=== PATIENT | female | born 1965 | race Caucasian/White ===

== ENCOUNTER 2017-12-22 10:20 | Emergency (ER) | payer MEDICAID, OTHER ==
[~2017-12-22 10:20] MED LIST: DIPH25CA83 PO; VITC500T PO
[2017-12-23] MEDS ORDERED: GABA-530 PO (15:48)
[2017-12-23] MEDS ORDERED: ACET-1008 PO (15:48)
[2017-12-23] MEDS ORDERED: APIX5TAB3 PO (15:48)
== END 2017-12-22 11:27 | disposition left against medical advice (07) ==
LOC: ER 10:23
DX: Z00.8 Encounter for other general examination (principal); Z53.21 Procedure and treatment not carried out due to patient leaving prior to being seen by health care provider

== ENCOUNTER 2019-05-20 06:07 | Day surgery (SDC) | payer MEDICAID ==
[2019-05-13 11:26] LABS: BASOPHILS # (AUTO) 0.1 X10'3 (0-0.2); BASOPHILS % (AUTO) 0.7 % (0-1); EOSINOPHILS # (AUTO) 0.2 X10'3 (0-0.9); EOSINOPHILS % (AUTO) 3.3 % (0-6); LYMPHOCYTES # (AUTO) 3.4 X10'3 (1.1-4.8); LYMPHOCYTES % (AUTO) 45.3 % (21-51); MEAN CORPUSCULAR HEMOGLOBIN 29.5 PG (27.0-31.0); MEAN CORPUSCULAR HGB CONC 32.7 g/dL (33.0-36.5); MEAN CORPUSCULAR VOLUME 90.2 FL (78-98); MEAN PLATELET VOLUME 8.7 FL (7.4-10.4); MONOCYTES # (AUTO) 0.5 X10'3 (0-0.9); MONOCYTES % (AUTO) 7.3 % (2-12); NEUTROPHILS # (AUTO) 3.2 X10'3 (1.8-7.7); NEUTROPHILS % (AUTO) 43.4 % (42-75); PRE OP HEMATOCRIT 44.3 % (35.0-45.0); PRE OP HEMOGLOBIN 14.5 g/dL (12.0-16.0); PRE OP PLATELET COUNT 230 X10'3 (140-440); RED BLOOD COUNT 4.91 X10'6 (4.20-5.60); RED CELL DISTRIBUTION WIDTH 14.8 % (11.5-14.5)
[2019-05-13 11:39] LABS: ALBUMIN 3.5 G/DL (3.4-5.0); ALBUMIN/GLOBULIN RATIO 0.9 (1.1-1.5); ALKALINE PHOSPHATASE 106 IU/L (46-116); BLOOD UREA NITROGEN 11 MG/DL (7-18); BUN/CREATININE RATIO 12.2 (6.6-38.0); CALCIUM 8.8 MG/DL (8.5-10.1); CHLORIDE 105 MMOL/L (99-107); PRE OP ALT 25 U/L (30-65); PRE OP ANION GAP 10 (8-16); PRE OP AST 20 U/L (10-37); PRE OP BILIRUB, TOTAL 0.2 MG/DL (0.0-1.0); PRE OP GLUCOSE 96 MG/DL (70-104); PRE OP SODIUM 140 MMOL/L (135-145); TOTAL CARBON DIOXIDE 25.4 MMOL/L (24-32); TOTAL PROTEIN 7.6 G/DL (6.4-8.2); eGFR 65 ML/MIN
[2019-05-13 11:40] LABS: PRE OP POTASSIUM 4.5 MMOL/L (3.4-5.1)
[2019-05-13 11:41] LABS: PRE OP PARTIAL THROMB. TIME 24 SECONDS (22-32); PRE OP PROTIME 9.7 SECONDS (9.0-12.0)
[2019-05-13 11:42] LABS: PRE OP INR < 0.9 INR
[~2019-05-20] VITALS: Ht 172.7 cm; Wt 114.8 kg
[~2019-05-20 06:07] MED LIST changes: +APIX5TAB3 PO; -DIPH25CA83 PO; +MECL12.584 PO; +RANI-648 PO; -VITC500T PO; +albuterol 2.5 MG/3 ML nebule NEB ONE; +clindamycin-Cleocin 900mg/D5W 50 ML IV ONE; +famotidine 20mg tablet PO ONE; +ringers solution, lacted 1,000 ML IV SCH
[2019-05-20 06:10] VITALS: BP 134/88
[2019-05-20] MEDS ORDERED: LIDOcaine 1% (10mg/ml) 2ml vial ONE (06:20)
[2019-05-20] MEDS ORDERED: BUPIVAcaine/PF 2.5mg/ml (0.25%) 10ml vial ONE (06:33)
[2019-05-20] MEDS ORDERED: LIDOcaine 0.5% (5mg/ml) 50ml vial ONE (07:46)
[2019-05-20] MEDS ORDERED: fentaNYL/PF 50MCG/1 ML 2ML syringe ONE (07:51)
[2019-05-20] MEDS ORDERED: midazolam 2 mg/2 ml injection ONE (07:51)
[2019-05-20] MEDS ORDERED: ringers solution, lacted 1,000 ML IV SCH (07:56)
[2019-05-20] MEDS ORDERED: proCHLORperazine 10 MG/2 ml inj IV PRN (08:00)
[2019-05-20] MEDS ORDERED: meperidine/PF 25mg/ml syringe IV PRN ×3 (08:00)
[2019-05-20] MEDS ORDERED: ondansetron/PF 4mg/2ml inj IV PRN (08:00)
[2019-05-20] MEDS ORDERED: morphine 4 MG/ML inj SYRINge IV PRN ×2 (08:00)
[2019-05-20] MEDS ORDERED: propofol 10mg/ml 20ml vial IV ONE (08:01)
[2019-05-20 08:30] VITALS: BP 132/53
--- NOTE | 2019-05-20 08:30 | NUR ---
ADMITTED TO PACU FROM OR ACCOMPANIED BY ANESTHESIA. INTIAL PHYSICAL ASSESSMENT DONE AND RECORDED. AWAKE AND RESPONSE ON ARRIVE YO PACU, REPORT RECEIVED FROM ANESTHESIA.
[2019-05-20 08:40] VITALS: BP 132/54
[2019-05-20 08:50] VITALS: BP 130/55
--- NOTE | 2019-05-20 09:10 | NUR ---
Discharge criteria met, discharge instructions given, demonstrates verbal understanding. Discharged home in good condition.
== END 2019-05-20 09:10 | disposition home or self-care (01) ==
LOC: PAS 06:07
PROVIDERS: ATTEND Orthopaedic Surgery Hand Surgery
DX: G56.03 Carpal tunnel syndrome, bilateral upper limbs (principal); I10 Essential (primary) hypertension; F41.9 Anxiety disorder, unspecified; F32.9 Major depressive disorder, single episode, unspecified; K21.9 Gastro-esophageal reflux disease without esophagitis; G89.4 Chronic pain syndrome; F43.10 Post-traumatic stress disorder, unspecified; E66.9 Obesity, unspecified; Z68.39 Body mass index [BMI] 39.0-39.9, adult; F17.210 Nicotine dependence, cigarettes, uncomplicated; Z88.8 Allergy status to other drugs, medicaments and biological substances; Z88.1 Allergy status to other antibiotic agents; Z88.0 Allergy status to penicillin; Z86.14 Personal history of Methicillin resistant Staphylococcus aureus infection; Z90.49 Acquired absence of other specified parts of digestive tract; Z98.890 Other specified postprocedural states; Z79.01 Long term (current) use of anticoagulants; Z79.899 Other long term (current) drug therapy
CPT/HCPCS: 29848; 36415; 80053; 82948; 85025; 85610; 85730; 93005; 94640; J2001; J2250; J2704; J3010; J3490; A4215; A7000; J7120

== ENCOUNTER 2019-05-26 12:03 | Inpatient (IN) | payer MEDICAID ==
[~2019-05-26] VITALS: Ht 172.7 cm; Wt 117.0 kg
[~2019-05-26 12:03] MED LIST changes: -albuterol 2.5 MG/3 ML nebule NEB ONE; -clindamycin-Cleocin 900mg/D5W 50 ML IV ONE; -famotidine 20mg tablet PO ONE; -ringers solution, lacted 1,000 ML IV SCH
[2019-05-26] MEDS ORDERED: ondansetron/PF 4mg/2ml inj IV ONE (12:30)
[2019-05-26] MEDS ORDERED: morphine 4 MG/ML inj SYRINge IV ONE (12:30)
[2019-05-26 12:34] LABS: BASOPHILS # (AUTO) 0.1 X10'3 (0-0.2); BASOPHILS % (AUTO) 0.8 % (0-1); EOSINOPHILS # (AUTO) 0.6 X10'3 (0-0.9); EOSINOPHILS % (AUTO) 5.8 % (0-6); HEMATOCRIT 41.3 % (35.0-45.0); HEMOGLOBIN 13.5 g/dl (12.0-16.0); LYMPHOCYTES # (AUTO) 2.6 X10'3 (1.1-4.8); MEAN CORPUSCULAR HEMOGLOBIN 29.6 PG (27.0-31.0); MEAN CORPUSCULAR HGB CONC 32.8 g/dL (33.0-36.5); MEAN CORPUSCULAR VOLUME 90.1 FL (78-98); MEAN PLATELET VOLUME 8.4 FL (7.4-10.4); MONOCYTES # (AUTO) 0.7 X10'3 (0-0.9); MONOCYTES % (AUTO) 6.4 % (2-12); NEUTROPHILS # (AUTO) 6.4 X10'3 (1.8-7.7); PLATELET COUNT 187 X10'3 (140-440); RED BLOOD COUNT 4.58 X10'6 (4.20-5.60); RED CELL DISTRIBUTION WIDTH 14.3 % (11.5-14.5); WHITE BLOOD COUNT 10.4 X10'3 (4.5-11.0)
[2019-05-26 12:47] LABS: PARTIAL THROMBOPLASTIN TIME 27 SECONDS (22-32)
[2019-05-26 12:51] LABS: ALANINE AMINOTRANSFERASE 24 U/L (12-78); ALBUMIN 3.5 G/DL (3.4-5.0); ALBUMIN/GLOBULIN RATIO 0.9 (1.1-1.5); ALKALINE PHOSPHATASE 101 IU/L (46-116); ANION GAP 8 (8-16); ASPARTATE AMINO TRANSFERASE 17 U/L (10-37); BILIRUBIN,TOTAL 0.4 MG/DL (0.1-1.0); BLOOD UREA NITROGEN 11 MG/DL (7-18); BUN/CREATININE RATIO 11.7 (6.6-38.0); CALCIUM 8.7 MG/DL (8.5-10.1); CHLORIDE 106 MMOL/L (99-107); CREATININE 0.94 MG/DL (0.40-0.90); GLUCOSE 92 MG/DL (70-104); SODIUM 139 MMOL/L (135-145); TOTAL CARBON DIOXIDE 25.2 MMOL/L (24-32); TOTAL PROTEIN 7.6 G/DL (6.4-8.2); eGFR 62 ML/MIN
[2019-05-26] MEDS ORDERED: iohexol 350MG/ML 100ml bottle IV ONE (13:11)
--- NOTE | 2019-05-26 13:11 | NUR ---
Patient to CT
[2019-05-26] MEDS ORDERED: heparin 25,000 UNIT/250ml bag 250 ML IV SCH (13:48)
[2019-05-26] MEDS ORDERED: heparin 10,000 units/1 ML INJ IV PRN (13:50)
[2019-05-26] MEDS ORDERED: heparin 10,000 units/1 ML INJ IV ONE (13:50)
[2019-05-26] MEDS ORDERED: ondansetron/PF 4mg/2ml inj IV PRN (14:10)
[2019-05-26] MEDS ORDERED: HYDROcodone/acetaminophen 5mg/325mg tablet PO PRN (14:10)
[2019-05-26] MEDS ORDERED: morphine 2 MG/ML inj. syringe IV PRN ×2 (14:10)
[2019-05-26] MEDS ORDERED: mag hydrox/Alum hydrox/simeth 30ml oral suspension PO PRN (14:10)
[2019-05-26] MEDS ORDERED: acetaminophen 325mg tablet PO PRN (14:10)
[2019-05-26] MEDS ORDERED: magnesium hydroxide 30ml (MOM) UD suspension PO PRN (14:10)
[2019-05-26] MEDS ORDERED: ACET-75 PO (14:26)
[2019-05-26] MEDS ORDERED: DOCU250C88 PO (14:26)
[2019-05-26] MEDS ORDERED: MECL-111 PO (14:26)
--- NOTE | 2019-05-26 14:41 | NUR ---
Patient lying in bed. Crying and upset about having PE's. Reassured patient and called her family for her. Patient calming down but still upset. Patient declined warm blanket at this time. Heparin drip infusing.
--- NOTE | 2019-05-26 16:50 | NUR ---
Recieved report from ENGINEER SECOND ASSISTANT [place]. Pt is ready to transfer to PCU. all questions and pertinent info was relayed.
[2019-05-26 17:00] VITALS: BP 112/64
--- NOTE | 2019-05-26 17:00 | NUR ---
Pt arrived to rm 3018B via gurney with one attendent. She was able to self transfer to bed. She is A&Ox3, c/o 8 pain in her chest, breathing is even deep and normal rate.. will medicate for pain and continue to monitor
[2019-05-26] MEDS ORDERED: docusate sod 250mg capsule PO PRN (17:30)
--- NOTE | 2019-05-26 17:33 | NUR ---
pT IS GETTING AN ECHO AT BEDSIDE
[2019-05-26 18:00] VITALS: BP 100/61
--- NOTE | 2019-05-26 18:35 | NUR ---
Problems reprioritized. Patient report given, questions answered & plan of care reviewed with PENG Daugherty.
[2019-05-26] MEDS: furosemide 20 MG/2 ML vial IV SCH (19:12)
[2019-05-26] MEDS: apixaban 5mg tablet PO SCH (19:16)
--- NOTE | 2019-05-26 19:37 | NUR ---
Patient in room PCU 3018. I have received report from PENG Oliveira and had the opportunity to ask questions and assume patient care.
[2019-05-26] MEDS: famotidine 20mg tablet PO SCH (20:38)
[2019-05-26] MEDS ORDERED: non-formulary drug (Ranitidine HCl (Zantac) 1 TAB) PO SCH (21:00)
--- NOTE | 2019-05-26 21:49 | NUR ---
[place] Medication Administration: For this medication-pass time frame, all medication were reviewed, dispensed, administered and documented per hospital policy by Charu KHOURY. [place] documentation: I have reviewed all interventions, assessments performed and documented by Charu KHOURY.
--- NOTE | 2019-05-26 21:50 | NUR ---
Problems reprioritized. Patient report given, questions answered & plan of care reviewed with Swathi KHOURY.
[2019-05-26 23:00] VITALS: BP 111/78
[2019-05-27 00:57] LABS: BASOPHILS % (AUTO) 0.5 % (0-1); EOSINOPHILS # (AUTO) 0.6 X10'3 (0-0.9); EOSINOPHILS % (AUTO) 7.8 % (0-6); HEMATOCRIT 39.8 % (35.0-45.0); HEMOGLOBIN 13.1 g/dl (12.0-16.0); LYMPHOCYTES # (AUTO) 2.1 X10'3 (1.1-4.8); LYMPHOCYTES % (AUTO) 28.3 % (21-51); MEAN CORPUSCULAR HEMOGLOBIN 29.6 PG (27.0-31.0); MEAN CORPUSCULAR HGB CONC 32.9 g/dL (33.0-36.5); MEAN CORPUSCULAR VOLUME 90.2 FL (78-98); MEAN PLATELET VOLUME 8.5 FL (7.4-10.4); MONOCYTES # (AUTO) 0.5 X10'3 (0-0.9); MONOCYTES % (AUTO) 6.4 % (2-12); NEUTROPHILS # (AUTO) 4.3 X10'3 (1.8-7.7); PLATELET COUNT 177 X10'3 (140-440); RED BLOOD COUNT 4.41 X10'6 (4.20-5.60); RED CELL DISTRIBUTION WIDTH 14.3 % (11.5-14.5); WHITE BLOOD COUNT 7.6 X10'3 (4.5-11.0)
[2019-05-27 01:15] LABS: ALBUMIN 3.3 G/DL (3.4-5.0); ANION GAP 9 (8-16); BLOOD UREA NITROGEN 12 MG/DL (7-18); BUN/CREATININE RATIO 11.2 (6.6-38.0); CALCIUM 8.5 MG/DL (8.5-10.1); CHLORIDE 104 MMOL/L (99-107); CREATININE 1.07 MG/DL (0.40-0.90); GLUCOSE 99 MG/DL (70-104); POTASSIUM 3.8 MMOL/L (3.5-5.1); SODIUM 142 MMOL/L (135-145); TOTAL CARBON DIOXIDE 28.8 MMOL/L (24-32); eGFR 53 ML/MIN
[2019-05-27 03:00] VITALS: BP 118/69
[2019-05-27 06:00] VITALS: BP 120/74
--- NOTE | 2019-05-27 06:20 | NUR ---
Problems reprioritized. Patient report given, questions answered & plan of care reviewed with Carolin KHOURY.
--- NOTE | 2019-05-27 06:55 | NUR ---
Patient in room PCU 3018. I have received report from Swathi KHOURY, and had the opportunity to ask questions and assume patient care.
[2019-05-27] MEDS: furosemide 20 MG/2 ML vial IV SCH ×3 (08:00→08:26)
[2019-05-27] MEDS: apixaban 5mg tablet PO SCH (08:23)
[2019-05-27] MEDS: famotidine 20mg tablet PO SCH (08:23)
--- NOTE | 2019-05-27 08:27 | NUR ---
Accidently undid NOC shift dose of IV lasix administered by Charu this was a mistake as I was trying to undo my administration for a low BP. Medication was administered last night appropriately.
[2019-05-27 08:30] VITALS: BP 96/57
[2019-05-27] MEDS ORDERED: ONDA4TAB6 PO (09:24)
[2019-05-27] MEDS ORDERED: FURO-150 PO (09:24)
--- NOTE | 2019-05-27 09:37 | NUR ---
Note to Case Management: No ride home. Car is parked nearby. Sierra Betts: 3018B Is discharged with no option for a ride home. She has her car parked near the [facility] and is requesting a ride to her car.
== END 2019-05-27 11:43 | disposition home or self-care (01) | DRG 194 ==
LOC: ER 12:04 → PCU 3S 17:25
PROVIDERS: ADMIT Internal Medicine; ATTEND Internal Medicine
PROC: B32T1ZZ Computerized Tomography (CT Scan) of Left Pulmonary Artery using Low Osmolar Contrast (ICD-10-PCS; principal; 2019-05-26)
PROC: B3201ZZ Computerized Tomography (CT Scan) of Thoracic Aorta using Low Osmolar Contrast (ICD-10-PCS; 2019-05-26)
PROC: B32S1ZZ Computerized Tomography (CT Scan) of Right Pulmonary Artery using Low Osmolar Contrast (ICD-10-PCS; 2019-05-26)
DX: I50.813 Acute on chronic right heart failure (principal); I26.09 Other pulmonary embolism with acute cor pulmonale; J96.01 Acute respiratory failure with hypoxia; F17.210 Nicotine dependence, cigarettes, uncomplicated; K21.9 Gastro-esophageal reflux disease without esophagitis; E66.01 Morbid (severe) obesity due to excess calories; K04.7 Periapical abscess without sinus; F12.90 Cannabis use, unspecified, uncomplicated; F32.9 Major depressive disorder, single episode, unspecified; M19.90 Unspecified osteoarthritis, unspecified site; Z79.01 Long term (current) use of anticoagulants; Z79.899 Other long term (current) drug therapy; Z59.0 Homelessness; Z68.39 Body mass index [BMI] 39.0-39.9, adult; Z88.5 Allergy status to narcotic agent; Z88.0 Allergy status to penicillin; Z88.1 Allergy status to other antibiotic agents; Z91.041 Radiographic dye allergy status; Z90.49 Acquired absence of other specified parts of digestive tract
CPT/HCPCS: 36415; 71045; 71275; 80048; 80053; 83605; 83880; 84484; 85025; 85610; 85730; 87040; 87081; 93005; 93306; 96365; 96375; 96376; 99285; G0378; J1644; J1940; J2270; J2405; Q9967

== ENCOUNTER 2019-09-26 16:32 | Inpatient (IN) | payer MEDICAID ==
[~2019-09-26] VITALS: Ht 172.7 cm; Wt 115.9 kg
[~2019-09-26 16:32] MED LIST changes: +ACET-75 PO; +DOCU250C88 PO; +FURO-150 PO; +MECL-159 PO; -MECL12.584 PO; +ONDA4TAB6 PO
--- NOTE | 2019-09-26 17:00 | NUR ---
PT. OFF TO CT
[2019-09-26] MEDS ORDERED: CLIN300C54 PO (17:12)
[2019-09-26 17:29] LABS: BASOPHILS % (AUTO) 0.6 % (0-1); EOSINOPHILS # (AUTO) 0.2 X10'3 (0-0.9); EOSINOPHILS % (AUTO) 3.4 % (0-6); HEMATOCRIT 42.7 % (35.0-45.0); HEMOGLOBIN 14.2 g/dl (12.0-16.0); LYMPHOCYTES # (AUTO) 2.5 X10'3 (1.1-4.8); LYMPHOCYTES % (AUTO) 37.3 % (21-51); MEAN CORPUSCULAR HEMOGLOBIN 29.5 PG (27.0-31.0); MEAN CORPUSCULAR HGB CONC 33.3 g/dL (33.0-36.5); MEAN CORPUSCULAR VOLUME 88.4 FL (78-98); MEAN PLATELET VOLUME 8.5 FL (7.4-10.4); MONOCYTES # (AUTO) 0.5 X10'3 (0-0.9); MONOCYTES % (AUTO) 7.6 % (2-12); NEUTROPHILS # (AUTO) 3.4 X10'3 (1.8-7.7); NEUTROPHILS % (AUTO) 51.1 % (42-75); PLATELET COUNT 252 X10'3 (140-440); RED BLOOD COUNT 4.84 X10'6 (4.20-5.60); RED CELL DISTRIBUTION WIDTH 14.3 % (11.5-14.5); WHITE BLOOD COUNT 6.6 X10'3 (4.5-11.0)
[2019-09-26 17:38] LABS: PARTIAL THROMBOPLASTIN TIME 29 SECONDS (22-32)
[2019-09-26 17:41] LABS: ALANINE AMINOTRANSFERASE 25 U/L (12-78); ALBUMIN 3.4 G/DL (3.4-5.0); ALBUMIN/GLOBULIN RATIO 0.9 (1.1-1.5); ALKALINE PHOSPHATASE 100 IU/L (46-116); ANION GAP 5 (8-16); ASPARTATE AMINO TRANSFERASE 18 U/L (10-37); BILIRUBIN,TOTAL 0.2 MG/DL (0.1-1.0); BLOOD UREA NITROGEN 13 MG/DL (7-18); BUN/CREATININE RATIO 14.1 (6.6-38.0); CALCIUM 9.6 MG/DL (8.5-10.1); CHLORIDE 108 MMOL/L (99-107); CREATININE 0.92 MG/DL (0.40-0.90); GLUCOSE 99 MG/DL (70-104); POTASSIUM 4.3 MMOL/L (3.5-5.1); SODIUM 145 MMOL/L (135-145); TOTAL CARBON DIOXIDE 32.5 MMOL/L (24-32); TOTAL PROTEIN 7.2 G/DL (6.4-8.2); eGFR 63 ML/MIN
[2019-09-26 17:45] LABS: TROPONIN I < 0.04 NG/ML (0.0-0.05)
[2019-09-26] MEDS ORDERED: ketorolac trometh. 30mg/ml inj. IV ONE (18:05)
[2019-09-26 18:28] LABS: URINE AMPHETAMINE SCREEN POSITIVE (Neg); URINE BARBITUATE SCREEN NEGATIVE (Neg); URINE BENZODIAZEPINES SCREEN NEGATIVE (Neg); URINE CANNABINOID SCREEN NEGATIVE (Neg); URINE COCAINE SCREEN NEGATIVE (Neg); URINE METHADONE SCREEN NEGATIVE (Neg); URINE OPIATE SCREEN NEGATIVE (Neg); URINE PHENCYCLIDINE SCREEN NEGATIVE (Neg)
[2019-09-26] MEDS ORDERED: iohexol 350MG/ML 100ml bottle IV ONE (18:31)
[2019-09-26] MEDS ORDERED: acetaminophen 325mg tablet PO PRN (18:55)
[2019-09-26] MEDS ORDERED: docusate sod 250mg capsule PO PRN (18:55)
[2019-09-26] MEDS ORDERED: magnesium 4gm in 100ml NS 100 ML IV PRN (18:55)
[2019-09-26] MEDS ORDERED: mag hydrox/Alum hydrox/simeth 30ml oral suspension PO PRN (18:55)
[2019-09-26] MEDS ORDERED: ipratropium/albuterol 3ml nebule NEB PRN (18:55)
[2019-09-26] MEDS ORDERED: ondansetron/PF 4mg/2ml inj IV PRN (18:55)
[2019-09-26] MEDS ORDERED: potassium CL 10mEq/100ml bag 100 ML IV PRN ×2 (18:55)
[2019-09-26] MEDS ORDERED: magnesium hydroxide 30ml (MOM) UD suspension PO PRN (18:55)
[2019-09-26] MEDS ORDERED: magnesium 2GM in 50ml NS 50 ML IV PRN (18:55)
[2019-09-26] MEDS ORDERED: potassium Cl 20 mEq SR tablet PO PRN ×2 (18:55)
[2019-09-26] MEDS ORDERED: HYDROcodone/acetaminophen 5mg/325mg tablet PO PRN (18:55)
[2019-09-26 19:07] LABS: C-REACTIVE PROTEIN 1.14 MG/DL (0.0-0.5)
[2019-09-26] MEDS: normal saline 1000ml 1,000 ML IV SCH (19:58)
--- NOTE | 2019-09-26 19:58 | NUR ---
PT RETURNED FROM MRI. ARRT TECHNOLOGIST REORTS THAT PT WAS UNABLE TO HAVE SCAN DONE DUE TO ANXIETY.
[2019-09-26] MEDS: K and/or MAG REPLACEMENT MC SCH (20:00)
[2019-09-26] MEDS: apixaban 5mg tablet PO SCH (20:04)
[2019-09-26 20:45] VITALS: BP 153/103
[2019-09-26] MEDS: HYDROcodone/acetaminophen 10/325mg tab PO PRN (21:24)
[2019-09-27 02:20] VITALS: BP 106/50
[2019-09-27] MEDS: normal saline 1000ml 1,000 ML IV SCH (05:11)
[2019-09-27 06:01] LABS: BASOPHILS # (AUTO) 0.1 X10'3 (0-0.2); BASOPHILS % (AUTO) 0.8 % (0-1); EOSINOPHILS # (AUTO) 0.2 X10'3 (0-0.9); EOSINOPHILS % (AUTO) 3.4 % (0-6); HEMATOCRIT 40.7 % (35.0-45.0); HEMOGLOBIN 13.5 g/dl (12.0-16.0); LYMPHOCYTES # (AUTO) 2.8 X10'3 (1.1-4.8); LYMPHOCYTES % (AUTO) 43.5 % (21-51); MEAN CORPUSCULAR HEMOGLOBIN 29.4 PG (27.0-31.0); MEAN CORPUSCULAR HGB CONC 33.1 g/dL (33.0-36.5); MEAN CORPUSCULAR VOLUME 88.8 FL (78-98); MONOCYTES # (AUTO) 0.4 X10'3 (0-0.9); MONOCYTES % (AUTO) 6.8 % (2-12); NEUTROPHILS # (AUTO) 2.9 X10'3 (1.8-7.7); NEUTROPHILS % (AUTO) 45.5 % (42-75); PLATELET COUNT 243 X10'3 (140-440); RED BLOOD COUNT 4.59 X10'6 (4.20-5.60); RED CELL DISTRIBUTION WIDTH 14.2 % (11.5-14.5); WHITE BLOOD COUNT 6.3 X10'3 (4.5-11.0)
--- NOTE | 2019-09-27 06:12 | NUR ---
Received report from Carol KHOURY
--- NOTE | 2019-09-27 06:12 | NUR ---
Report given to Lashell KHOURY.
[2019-09-27 06:16] LABS: ALANINE AMINOTRANSFERASE 25 U/L (12-78); ALBUMIN 3.1 G/DL (3.4-5.0); ALBUMIN/GLOBULIN RATIO 0.9 (1.1-1.5); ALKALINE PHOSPHATASE 87 IU/L (46-116); ANION GAP 7 (8-16); ASPARTATE AMINO TRANSFERASE 16 U/L (10-37); BILIRUBIN,TOTAL 0.3 MG/DL (0.1-1.0); BLOOD UREA NITROGEN 14 MG/DL (7-18); BUN/CREATININE RATIO 15.4 (6.6-38.0); CALCIUM 8.7 MG/DL (8.5-10.1); CHLORIDE 108 MMOL/L (99-107); CHOL/HDL RATIO 3.9 (0.00-4.99); CHOLESTEROL 177 MG/DL (0-200); CREATININE 0.91 MG/DL (0.40-0.90); GLUCOSE 87 MG/DL (70-104); HDL CHOLESTEROL 45 MG/DL (35-60); LDL CHOLESTEROL 124 MG/DL (50-100); MAGNESIUM 1.8 MG/DL (1.5-2.4); POTASSIUM 4.2 MMOL/L (3.5-5.1); SODIUM 144 MMOL/L (135-145); TOTAL CARBON DIOXIDE 29.2 MMOL/L (24-32); TOTAL PROTEIN 6.6 G/DL (6.4-8.2); TRIGLYCERIDES 80 MG/DL (20-135); eGFR 64 ML/MIN
[2019-09-27 06:59] VITALS: BP 138/85
[2019-09-27] MEDS: K and/or MAG REPLACEMENT MC SCH (07:20)
[2019-09-27] MEDS: apixaban 5mg tablet PO SCH (07:23)
[2019-09-27] MEDS: HYDROcodone/acetaminophen 10/325mg tab PO PRN (07:27)
[2019-09-27] MEDS ORDERED: aspirin 81mg tablet.DR PO SCH (08:00)
[2019-09-27] MEDS ORDERED: nicotine 14mg patch - 24hr TD SCH (08:00)
[2019-09-27] MEDS ORDERED: LORazepam 2 mg/ml vial IM ONE (08:10)
[2019-09-27] MEDS ORDERED: diazepam inj 5 MG/ML inj. IV ONE (08:10)
[2019-09-27] MEDS ORDERED: atorvastatin 20mg tablet PO SCH (08:20)
[2019-09-27 10:00] VITALS: BP 130/73
[2019-09-27] MEDS ORDERED: pneumococcal 23-VAL P-sac vacc 25 mcg/0.5ml vial IMVAC ONE (10:00)
[2019-09-27] MEDS ORDERED: ATOR20TA66 PO (12:23)
[2019-09-27] MEDS ORDERED: NICO-631 TD (12:23)
--- NOTE | 2019-09-27 13:51 | NUR ---
pt d/c with instructions, understanding of instructions and w/all belongings in wheelchair accompanied by friend go to to private vehicle go to home a f/u w/pcp
== END 2019-09-27 13:55 | disposition home or self-care (01) | DRG 115 ==
LOC: ER 16:32 → ED HOLD 19:01 → EDBEDREQ 20:16 → ORTHO 4S 20:30
PROVIDERS: ADMIT Family Medicine; ATTEND Family Medicine
DX: M26.622 Arthralgia of left temporomandibular joint (principal); E78.5 Hyperlipidemia, unspecified; H53.2 Diplopia; F15.10 Other stimulant abuse, uncomplicated; F17.210 Nicotine dependence, cigarettes, uncomplicated; K02.9 Dental caries, unspecified; K21.9 Gastro-esophageal reflux disease without esophagitis; Z88.0 Allergy status to penicillin; Z88.8 Allergy status to other drugs, medicaments and biological substances; Z88.6 Allergy status to analgesic agent; Z88.2 Allergy status to sulfonamides; Z91.041 Radiographic dye allergy status; Z90.49 Acquired absence of other specified parts of digestive tract; Z86.718 Personal history of other venous thrombosis and embolism; Z79.01 Long term (current) use of anticoagulants
CPT/HCPCS: 36415; 70450; 70496; 70498; 70544; 70551; 71045; 80053; 80061; 80305; 82948; 83735; 84484; 85025; 85610; 85651; 85730; 86140; 90732; 93005; 93306; 96374; 97162; 97530; 99285; G0378; J1885; J2060; J7030; Q9967

== ENCOUNTER 2020-07-19 14:06 | Emergency (ER) | payer MEDICAID ==
[~2020-07-19] VITALS: Ht 172.7 cm; Wt 127.3 kg
[~2020-07-19 14:06] MED LIST changes: +ATOR20TA66 PO; +CLIN300C54 PO; -DOCU250C88 PO; +DOCU250C89 PO; -FURO-150 PO; +NICO-631 TD; -RANI-648 PO
== END 2020-07-19 15:15 | disposition left against medical advice (07) ==
LOC: ER 14:07
DX: M79.10 Myalgia, unspecified site (principal); Z53.21 Procedure and treatment not carried out due to patient leaving prior to being seen by health care provider

== ENCOUNTER 2020-11-26 22:42 | Inpatient (IN) | payer MEDICAID ==
[~2020-11-26] VITALS: Ht 170.2 cm; Wt 125.9 kg
[2020-11-26] MEDS ORDERED: ipratropium/albuterol 3ml nebule NEB ONE (23:05)
[2020-11-26] MEDS ORDERED: dexamethasone sod phosphate 10mg/ml inj IV STA (23:08)
[2020-11-26 23:21] LABS: BASOPHILS # (AUTO) 0.1 X10'3 (0-0.2); BASOPHILS % (AUTO) 0.7 % (0-1); EOSINOPHILS # (AUTO) 0.7 X10'3 (0-0.9); EOSINOPHILS % (AUTO) 6.7 % (0-6); HEMATOCRIT 41.6 % (35.0-45.0); HEMOGLOBIN 13.8 g/dl (12.0-16.0); LYMPHOCYTES % (AUTO) 30.6 % (21-51); MEAN CORPUSCULAR HEMOGLOBIN 29.7 PG (27.0-31.0); MEAN CORPUSCULAR HGB CONC 33.2 g/dL (33.0-36.5); MEAN CORPUSCULAR VOLUME 89.4 FL (78-98); MEAN PLATELET VOLUME 8.8 FL (7.4-10.4); MONOCYTES # (AUTO) 0.7 X10'3 (0-0.9); MONOCYTES % (AUTO) 7.1 % (2-12); NEUTROPHILS # (AUTO) 5.4 X10'3 (1.8-7.7); NEUTROPHILS % (AUTO) 54.9 % (42-75); PLATELET COUNT 209 X10'3 (140-440); RED BLOOD COUNT 4.65 X10'6 (4.20-5.60); RED CELL DISTRIBUTION WIDTH 13.9 % (11.5-14.5); WHITE BLOOD COUNT 9.9 X10'3 (4.5-11.0)
[2020-11-26 23:33] LABS: ALANINE AMINOTRANSFERASE 47 U/L (12-78); ALBUMIN 3.4 G/DL (3.4-5.0); ALBUMIN/GLOBULIN RATIO 0.8 (1.1-1.5); ALKALINE PHOSPHATASE 111 IU/L (46-116); ANION GAP 10 (8-16); ASPARTATE AMINO TRANSFERASE 31 U/L (10-37); BILIRUBIN,TOTAL 0.3 MG/DL (0.1-1.0); BLOOD UREA NITROGEN 12 MG/DL (7-18); BUN/CREATININE RATIO 11.8 (6.6-38.0); CALCIUM 9.1 MG/DL (8.5-10.1); CHLORIDE 104 MMOL/L (99-107); CREATININE 1.02 MG/DL (0.40-0.90); GLUCOSE 107 MG/DL (70-104); SODIUM 140 MMOL/L (135-145); TOTAL CARBON DIOXIDE 26.4 MMOL/L (24-32); TOTAL PROTEIN 7.7 G/DL (6.4-8.2); eGFR 56 ML/MIN
[2020-11-26 23:37] LABS: D-DIMER 5.19 MG/L FEU (0-0.50)
[2020-11-26] MEDS ORDERED: furosemide 10 MG/1 ML 10ml inj IV ONE (23:40)
[2020-11-26] MEDS ORDERED: nitroGLYCERIN 0.4mg/hour patch TD ONE (23:40)
[2020-11-27] VITALS (7 sets, daily range): BP systolic 93–137; BP diastolic 52–81
[2020-11-27] MEDS ORDERED: enoxaparin 100mg/ml syringe SUBCUT ONE
[2020-11-27] MEDS ORDERED: enoxaparin 30mg/0.3ml syringe SUBCUT ONE (00:10)
[2020-11-27] MEDS ORDERED: iohexol 350MG/ML 100ml bottle IV ONE (00:11)
[2020-11-27] MEDS ORDERED: mag hydrox/Alum hydrox/simeth 30ml oral suspension PO PRN (02:00)
[2020-11-27] MEDS ORDERED: acetaminophen 325mg tablet PO PRN ×2 (02:00→09:00)
[2020-11-27] MEDS ORDERED: ondansetron/PF 4mg/2ml inj IV PRN (02:00)
[2020-11-27] MEDS ORDERED: magnesium hydroxide 30ml (MOM) UD suspension PO PRN (02:00)
--- NOTE | 2020-11-27 03:00 | NUR ---
Received the pt from ER. Pt AAOx4, follows command, speech clear, breathing even and unlabored on 2 L nasal canula. Moves all 4 extremities. Bowel sounds on 4 quadrants. 2 RN skin check completed. Updated on plan of care, all questions answered and concerns addressed. Oriented pt to the unit. Will continue to monitor
--- NOTE | 2020-11-27 06:00 | NUR ---
Patient in room PCU 3027. I have received report from William KHOURY and had the opportunity to ask questions and assume patient care.
--- NOTE | 2020-11-27 06:27 | NUR ---
Problems reprioritized. Patient report given, questions answered & plan of care reviewed with Terrie KHOURY.
[2020-11-27] MEDS ORDERED: enoxaparin 100mg/ml syringe SUBCUT SCH (08:00)
[2020-11-27] MEDS ORDERED: enoxaparin 30mg/0.3ml syringe SQ SCH (08:00)
[2020-11-27 08:25] LABS: BASOPHILS % (AUTO) 0.6 % (0-1); EOSINOPHILS % (AUTO) 0.2 % (0-6); HEMATOCRIT 43.4 % (35.0-45.0); HEMOGLOBIN 14.3 g/dl (12.0-16.0); LYMPHOCYTES # (AUTO) 1.1 X10'3 (1.1-4.8); LYMPHOCYTES % (AUTO) 15.3 % (21-51); MEAN CORPUSCULAR HEMOGLOBIN 29.7 PG (27.0-31.0); MEAN CORPUSCULAR VOLUME 90.2 FL (78-98); MEAN PLATELET VOLUME 9.2 FL (7.4-10.4); MONOCYTES # (AUTO) 0.1 X10'3 (0-0.9); NEUTROPHILS % (AUTO) 82.9 % (42-75); PLATELET COUNT 227 X10'3 (140-440); RED BLOOD COUNT 4.81 X10'6 (4.20-5.60); RED CELL DISTRIBUTION WIDTH 13.9 % (11.5-14.5); WHITE BLOOD COUNT 7.2 X10'3 (4.5-11.0)
--- NOTE | 2020-11-27 08:31 | NUR ---
PAGER ID: [phone] MESSAGE: V-Rad Dr Mills wanted to confirm that you are aware of multiple PE's reflected on CT for Sierra Betts rm [id number].His number is [phone] Thanks Terrie Mendieta RN
--- NOTE | 2020-11-27 08:31 | NUR ---
Spoke with Dr. Mills the Rula De Paz MD regarding the Critical CT results of multiple pulmonary embolisms. Informed Dr. Mills that the patient is currently on Lovenox. I cannot confirm what the hospitalist is aware of however krys Falcon RN sent a page to Becka Ortiz relaying the message with Dr. Mills phone number.
[2020-11-27 08:32] LABS: ALBUMIN 3.5 G/DL (3.4-5.0); ANION GAP 14 (8-16); BLOOD UREA NITROGEN 15 MG/DL (7-18); BUN/CREATININE RATIO 16.3 (6.6-38.0); CALCIUM 9.3 MG/DL (8.5-10.1); CHLORIDE 103 MMOL/L (99-107); CREATININE 0.92 MG/DL (0.40-0.90); GLUCOSE 148 MG/DL (70-104); POTASSIUM 4.3 MMOL/L (3.5-5.1); SODIUM 140 MMOL/L (135-145); TOTAL CARBON DIOXIDE 23.2 MMOL/L (24-32); eGFR 63 ML/MIN
[2020-11-27] MEDS ORDERED: CALC-853 PO (14:58)
[2020-11-27] MEDS ORDERED: MULT-1085 PO (14:58)
[2020-11-27] MEDS ORDERED: BISM-51 PO (14:58)
[2020-11-27] MEDS ORDERED: CHOL100025 PO (14:58)
[2020-11-27] MEDS ORDERED: VITA-268 PO (14:58)
[2020-11-27] MEDS ORDERED: OMEG-79 PO (14:58)
[2020-11-27] MEDS: furosemide 20 MG/2 ML vial IV SCH (16:36)
--- NOTE | 2020-11-27 18:23 | NUR ---
Problems reprioritized. Patient report given, questions answered & plan of care reviewed with William TAY
--- NOTE | 2020-11-27 18:32 | NUR ---
Patient in room PCU 3027. I have received report from Terrie KHOURY and had the opportunity to ask questions and assume patient care.
[2020-11-27] MEDS: apixaban 5mg tablet PO SCH (19:41)
[2020-11-28 02:00] VITALS: BP 113/65
--- NOTE | 2020-11-28 06:00 | NUR ---
Patient in room PCU 3027. I have received report from PENG Thomas and had the opportunity to ask questions and assume patient care.
[2020-11-28 06:03] LABS: BASOPHILS # (AUTO) 0.1 X10'3 (0-0.2); BASOPHILS % (AUTO) 0.9 % (0-1); EOSINOPHILS # (AUTO) 0.1 X10'3 (0-0.9); EOSINOPHILS % (AUTO) 0.5 % (0-6); HEMATOCRIT 43.3 % (35.0-45.0); HEMOGLOBIN 13.9 g/dl (12.0-16.0); LYMPHOCYTES # (AUTO) 3.2 X10'3 (1.1-4.8); LYMPHOCYTES % (AUTO) 22.2 % (21-51); MEAN CORPUSCULAR HEMOGLOBIN 29.2 PG (27.0-31.0); MEAN CORPUSCULAR HGB CONC 32.1 g/dL (33.0-36.5); MEAN PLATELET VOLUME 9.4 FL (7.4-10.4); MONOCYTES # (AUTO) 0.7 X10'3 (0-0.9); MONOCYTES % (AUTO) 5.2 % (2-12); NEUTROPHILS # (AUTO) 10.2 X10'3 (1.8-7.7); NEUTROPHILS % (AUTO) 71.2 % (42-75); PLATELET COUNT 233 X10'3 (140-440); RED BLOOD COUNT 4.75 X10'6 (4.20-5.60); WHITE BLOOD COUNT 14.3 X10'3 (4.5-11.0)
[2020-11-28 06:08] LABS: ALANINE AMINOTRANSFERASE 39 U/L (12-78); ALBUMIN 3.4 G/DL (3.4-5.0); ALBUMIN/GLOBULIN RATIO 0.8 (1.1-1.5); ALKALINE PHOSPHATASE 104 IU/L (46-116); ANION GAP 9 (8-16); ASPARTATE AMINO TRANSFERASE 19 U/L (10-37); BILIRUBIN,TOTAL 0.2 MG/DL (0.1-1.0); BLOOD UREA NITROGEN 23 MG/DL (7-18); CALCIUM 9.6 MG/DL (8.5-10.1); CHLORIDE 102 MMOL/L (99-107); GLUCOSE 138 MG/DL (70-104); POTASSIUM 4.3 MMOL/L (3.5-5.1); SODIUM 139 MMOL/L (135-145); TOTAL PROTEIN 7.9 G/DL (6.4-8.2); eGFR 57 ML/MIN
--- NOTE | 2020-11-28 06:15 | NUR ---
Patient in room PCU 3027. I have received report from William KHOURY and had the opportunity to ask questions and assume patient care.
--- NOTE | 2020-11-28 06:17 | NUR ---
Problems reprioritized. Patient report given, questions answered & plan of care reviewed with Cole KHOURY.
[2020-11-28 07:00] VITALS: BP 119/74
[2020-11-28] MEDS: furosemide 20 MG/2 ML vial IV SCH (09:12)
[2020-11-28] MEDS: apixaban 5mg tablet PO SCH (09:12)
--- NOTE | 2020-11-28 10:25 | NUR ---
O2 Sat at rest on room air:_91_% If below 89%: Recovery O2 Sat at rest on ___LPM:___%:___% via (mask/nasal cannula, etc..) No further documentation is necessary. If O2 Sat did not drop below 89% on room air,ambulate patient on room air. O2 Sat while ambulating on room air:_86_% Recovery O2 Sat while ambulating on _2_LPM:_92_% No further documentation is necessary. If patient does not drop below 89% while ambulating, he/she does not qualify for home O2.
[2020-11-28 11:00] VITALS: BP 112/71
--- NOTE | 2020-11-28 11:31 | NUR ---
PAGER ID: [phone] MESSAGE: Re: Sierra Betts. Room: [facility]. Pt qualified for home O2. Awaiting oxygen drop off from shin. Pt ready for DC. -[facility][phone] Dr. Sheridan paged concerning Pt's O2 qualification
[2020-11-28] MEDS ORDERED: APIX5TAB3 PO (12:38)
--- NOTE | 2020-11-28 16:00 | NUR ---
[place] documentation: I have reviewed and agree with all interventions, assessments performed and documented by Kanchan Perkins RN.
--- NOTE | 2020-11-28 16:00 | NUR ---
Patient is stable for discharge per MD orders. All discharge instructions reviewed with patient and all questions answered. Patient will make follow-up appointment with PCP. New prescriptions called into pharmacy. PIV discontinued, cannula intact. senior it engineer discontinued. All belongings collected and sent with patient. Patient was wheeled to lobby and placed into private vehicle.
--- NOTE | 2020-11-29 15:23 | NUR ---
CASE MANAGEMENT DISCHARGE FOLLOW UP: Spoke with pt via telephone, pt sounds like she having a hard time catching her breath, she states that she is SOB with activity but is able to catch her breath after resting. Wearing 2LPM via NC. Denies CP and fever. Verbalizes understanding of s/sx requiring further evaluation/emergent assistance. Verbalizes understanding of medication. Verbalizes compliance with MD discharge instructions, states going to call to set up f/u appointment with PCP, advised that discharging MD would like her to get a referral for a proprietary trader, she verbalizes understanding. States no further questions/concerns at this time.
== END 2020-11-28 17:33 | disposition home or self-care (01) | DRG 134 ==
LOC: ER 22:42 → ED HOLD 11-27 01:58 → PCU 3S 11-27 03:00
PROVIDERS: ADMIT Internal Medicine; ATTEND Family Medicine
DX: I26.99 Other pulmonary embolism without acute cor pulmonale (principal); J96.01 Acute respiratory failure with hypoxia; I27.20 Pulmonary hypertension, unspecified; E66.01 Morbid (severe) obesity due to excess calories; F12.90 Cannabis use, unspecified, uncomplicated; F17.200 Nicotine dependence, unspecified, uncomplicated; M19.90 Unspecified osteoarthritis, unspecified site; F32.9 Major depressive disorder, single episode, unspecified; Z88.1 Allergy status to other antibiotic agents; Z20.822 Contact with and (suspected) exposure to COVID-19; Z88.0 Allergy status to penicillin; Z88.8 Allergy status to other drugs, medicaments and biological substances; Z90.49 Acquired absence of other specified parts of digestive tract; Z87.01 Personal history of pneumonia (recurrent); Z86.711 Personal history of pulmonary embolism; Z59.0 Homelessness; Z68.41 Body mass index [BMI] 40.0-44.9, adult
CPT/HCPCS: 36415; 71045; 71275; 80048; 80053; 83880; 84484; 85025; 85379; 87081; 87635; 93005; 93308; 94640; 94760; 99285; C9803; G0378; J1100; J1650; J1940; Q9967

== ENCOUNTER 2022-07-13 23:03 | Emergency (ER) | payer MEDICAID ==
[~2022-07-13 23:03] MED LIST changes: -ACET-75 PO; -ATOR20TA66 PO; +BISM-51 PO; +CALC-853 PO; +CHOL100025 PO; -CLIN300C54 PO; -DOCU250C89 PO; -MECL-159 PO; +MULT-1085 PO; -NICO-631 TD; +OMEG-79 PO; -ONDA4TAB6 PO; +VITA-268 PO
== END 2022-07-14 00:19 | disposition left against medical advice (07) ==
LOC: ER 23:04
DX: K08.89 Other specified disorders of teeth and supporting structures (principal); Z53.21 Procedure and treatment not carried out due to patient leaving prior to being seen by health care provider

== ENCOUNTER 2022-08-07 18:02 | Emergency (ER) | payer MEDICAID ==
[~2022-08-07] VITALS: Ht 167.6 cm; Wt 130.9 kg
[2022-08-07 19:05] LABS: BASOPHILS % (AUTO) 0.5 % (0-1); EOSINOPHILS # (AUTO) 0.3 X10'3 (0-0.9); EOSINOPHILS % (AUTO) 3.7 % (0-6); HEMOGLOBIN 15.1 g/dl (12.0-16.0); LYMPHOCYTES # (AUTO) 3.5 X10'3 (1.1-4.8); LYMPHOCYTES % (AUTO) 39.2 % (21-51); MEAN CORPUSCULAR HEMOGLOBIN 30.8 PG (27.0-31.0); MEAN CORPUSCULAR HGB CONC 33.4 g/dL (33.0-36.5); MEAN CORPUSCULAR VOLUME 92.2 FL (78-98); MEAN PLATELET VOLUME 9.6 FL (7.4-10.4); MONOCYTES # (AUTO) 0.6 X10'3 (0-0.9); MONOCYTES % (AUTO) 7.2 % (2-12); NEUTROPHILS # (AUTO) 4.4 X10'3 (1.8-7.7); NEUTROPHILS % (AUTO) 49.4 % (42-75); PLATELET COUNT 235 X10'3 (140-440); RED BLOOD COUNT 4.88 X10'6 (4.20-5.60); RED CELL DISTRIBUTION WIDTH 13.8 % (11.5-14.5)
[2022-08-07 19:15] LABS: ALANINE AMINOTRANSFERASE 63 U/L (12-78); ALBUMIN 3.7 G/DL (3.4-5.0); ALBUMIN/GLOBULIN RATIO 0.9 (1.1-1.5); ALKALINE PHOSPHATASE 184 IU/L (46-116); ANION GAP 9 (8-16); ASPARTATE AMINO TRANSFERASE 45 U/L (10-37); BILIRUBIN,TOTAL 0.4 MG/DL (0.1-1.0); BLOOD UREA NITROGEN 8 MG/DL (7-18); BUN/CREATININE RATIO 7.5 (6.6-38.0); CHLORIDE 103 MMOL/L (99-107); CREATININE 1.07 MG/DL (0.40-0.90); GLUCOSE 114 MG/DL (70-104); POTASSIUM 4.2 MMOL/L (3.5-5.1); SODIUM 138 MMOL/L (135-145); TOTAL CARBON DIOXIDE 25.7 MMOL/L (24-32); eGFR 53 ML/MIN
[2022-08-07] MEDS ORDERED: CEPH-585 PO (20:04)
[2022-08-07] MEDS ORDERED: acetaminophen 325mg tablet PO ONE (20:05)
[2022-08-07 20:45] VITALS: BP 130/90
== END 2022-08-07 20:48 | disposition home or self-care (01) ==
LOC: ER 18:03
DX: L03.115 Cellulitis of right lower limb (principal); M79.604 Pain in right leg; M19.90 Unspecified osteoarthritis, unspecified site; F32.A Depression, unspecified; F12.90 Cannabis use, unspecified, uncomplicated; F15.90 Other stimulant use, unspecified, uncomplicated; Z87.01 Personal history of pneumonia (recurrent); Z86.711 Personal history of pulmonary embolism; Z90.49 Acquired absence of other specified parts of digestive tract; Z98.890 Other specified postprocedural states; Z72.89 Other problems related to lifestyle; Z59.00 Homelessness unspecified; Z88.0 Allergy status to penicillin; Z88.1 Allergy status to other antibiotic agents; Z88.8 Allergy status to other drugs, medicaments and biological substances; Z88.2 Allergy status to sulfonamides; Z88.5 Allergy status to narcotic agent; Z79.2 Long term (current) use of antibiotics; Z79.899 Other long term (current) drug therapy
CPT/HCPCS: 36415; 73610; 80053; 84145; 85025; 99284

== ENCOUNTER 2022-08-19 22:43 | Emergency (ER) | payer MEDICAID ==
[~2022-08-19] VITALS: Ht 167.6 cm; Wt 129.6 kg
[~2022-08-19 22:43] MED LIST changes: +CEPH-585 PO
[2022-08-19 23:22] VITALS: BP 148/69
== END 2022-08-20 04:36 | disposition left against medical advice (07) ==
LOC: ER 22:44
DX: M79.604 Pain in right leg (principal); Z53.21 Procedure and treatment not carried out due to patient leaving prior to being seen by health care provider

== ENCOUNTER → 2023-09-08 | Outpatient (CLI) | payer MEDICAID ==
[~2023-09-08] MED LIST changes: -CEPH-585 PO
== END | disposition home or self-care (01) ==
LOC: CARD DIAG 11:26
PROVIDERS: ATTEND Internal Medicine Critical Care Medicine
DX: I08.8 Other rheumatic multiple valve diseases (principal); I27.20 Pulmonary hypertension, unspecified
CPT/HCPCS: 93306

== ENCOUNTER 2024-08-27 20:50 | Emergency (ER) | payer MEDICAID ==
[~2024-08-27] VITALS: Ht 170.2 cm; Wt 117.3 kg
[2024-08-27 20:54] VITALS: BP 154/86; PULSE 88; RESP 22; TEMP 98.2; O2SAT 96
[2024-08-27] MEDS ORDERED: DOXY-1 PO (22:13)
== END 2024-08-27 22:49 | disposition home or self-care (01) ==
LOC: ER 20:51
DX: L02.211 Cutaneous abscess of abdominal wall (principal); M19.90 Unspecified osteoarthritis, unspecified site; F12.90 Cannabis use, unspecified, uncomplicated; F15.90 Other stimulant use, unspecified, uncomplicated; F32.A Depression, unspecified; Z88.0 Allergy status to penicillin; Z88.1 Allergy status to other antibiotic agents; Z88.2 Allergy status to sulfonamides; Z88.5 Allergy status to narcotic agent; Z88.8 Allergy status to other drugs, medicaments and biological substances; Z91.041 Radiographic dye allergy status; Z79.899 Other long term (current) drug therapy; Z86.711 Personal history of pulmonary embolism; Z59.00 Homelessness unspecified; Z90.49 Acquired absence of other specified parts of digestive tract; Z72.89 Other problems related to lifestyle
CPT/HCPCS: 10060; 99283; A6407; A6449

== ENCOUNTER 2024-08-31 20:34 | Emergency (ER) | payer MEDICAID ==
[~2024-08-31] VITALS: Ht 170.2 cm; Wt 117.9 kg
[~2024-08-31 20:34] MED LIST changes: +DOXY-1 PO
[2024-08-31 20:36] VITALS: BP 166/89; PULSE 94; RESP 16; TEMP 97.9; O2SAT 96
== END 2024-08-31 21:37 | disposition home or self-care (01) ==
LOC: ER 20:34
DX: L03.311 Cellulitis of abdominal wall (principal); Z48.00 Encounter for change or removal of nonsurgical wound dressing; E11.9 Type 2 diabetes mellitus without complications; M19.90 Unspecified osteoarthritis, unspecified site; F17.200 Nicotine dependence, unspecified, uncomplicated; F32.A Depression, unspecified; F12.90 Cannabis use, unspecified, uncomplicated; F15.90 Other stimulant use, unspecified, uncomplicated; Z86.711 Personal history of pulmonary embolism; Z88.0 Allergy status to penicillin; Z88.1 Allergy status to other antibiotic agents; Z88.2 Allergy status to sulfonamides; Z88.5 Allergy status to narcotic agent; Z88.8 Allergy status to other drugs, medicaments and biological substances; Z90.49 Acquired absence of other specified parts of digestive tract; Z91.041 Radiographic dye allergy status; Z98.890 Other specified postprocedural states; Z59.00 Homelessness unspecified; Z79.899 Other long term (current) drug therapy
CPT/HCPCS: 99281; A6258

== ENCOUNTER 2025-07-17 10:38 | Emergency (ER) | payer MEDICAID ==
[~2025-07-17] VITALS: Ht 170.2 cm; Wt 104.8 kg
[~2025-07-17 10:38] MED LIST changes: -DOXY-1 PO
--- NOTE | 2025-07-17 11:18 | RADIOLOGY REPORT ---
CHEST RADIOGRAPH Indication: rib pain Technique: Frontal and lateral view of the chest was obtained Comparison: None FINDINGS: Lines and Tubes: None Lungs: Congestion Pleura: No effusion. No pneumothorax. Cardiomediastinal contours: Unremarkable Bones: Unremarkable IMPRESSION: Increased interstital prominence. This may represent pulmonary vascular congestion and/or viral pneumonia. Clinical correlation advised.
[2025-07-17 14:37] VITALS: TEMP 97.3
--- NOTE | 2025-07-17 14:57 | Physician Documentation ---
History of Present Illness ~ Chief Complaint: Rib pain Stated Complaint: FALL THURSDAY/RIB PAIN Time Seen by MD: 14:27 [facility] Mode of Arrival: POV, Ambulatory HPI 59-year-old female presents to the ED complaint of right rib pain after falling two days ago. She denies any history of congestive heart failure or recent pneumonia. She can not take a deep breath and thinks that her ribs are broken Tetanus within 5 Years?: No Allergies: Coded Allergies: Penicillins (Verified Allergy, Severe, ANAPHYLAXIS, 08/31/24) ampicillin (Verified Allergy, Severe, ANAPHYLAXIS, 08/31/24) ciprofloxacin HCl (Verified Allergy, Severe, ANAPHYLAXIS- SEE CMNTS, 08/31/24) HAD ANAPHYLAXIS WHILE ON THIS AND CIPRO, THEY AREN'T SURE WHICH CAUSED THE REACTION gentamicin (Verified Allergy, Severe, CAUSED INNER EAR DAMAGE PERMANENT VERTIGO, 08/31/24) vancomycin (Unverified Allergy, Severe, ANAPHYLAXIS- SEE CMNTS, 08/31/24) HAD ANAPHYLAXIS WHILE ON THIS AND CIPRO, THEY AREN'T SURE WHICH CAUSED THE REACTION iodine (Verified Allergy, Intermediate, 08/31/24) Sulfa (Sulfonamide Antibiotics) (Verified Allergy, Unknown, DOESN'T REMEMBER, 08/31/24) poison oak extract (Unverified Allergy, Unknown, 08/31/24) codeine (Verified Adverse Reaction, Unknown, FEELS WEIRD AND JITTERY, 08/31/24) Active Prescriptions See Medication Reconciliation Form. Medication Reconciliation Scheduled Apixaban (Eliquis), 1 TAB PO BID Calcium Carbonate/Vitamin D3 (Calcium 600 + Vit D Caplet), 1 TAB PO DAILY, (Reported) Cholecalciferol (Vitamin D), 1 TAB PO DAILY, (Reported) Multivitamin (Multi Vitamin Daily), 1 TAB PO DAILY, (Reported) [place]-3 Fatty Acids/Fish Oil (Fish Oil 1,000 Mg Softgel), 1 CAP PO DAILY, (Reported) Vitamin B Complex (B Complex), 1 TAB PO DAILY, (Reported) Scheduled PRN Bismuth Subsalicylate (Pepto-Bismol), 15 ML PO QID PRN for indigestion/dyspepsia, (Reported) Past Medical History Past Medical History: Endocarditis, Bronchitis, Pneumonia, Pulmonary Embolism, Arthritis, Depression Past Surgical History: cholecystectomy, orthopedic surgeries Patient History: Patient reports no known family medical history. Other Past Family History: NONCONTRIBUTORY Alcohol Use: Occasionally Drug Use: marijuana, methamphetamine Lives In: Homeless Review of Systems All Other Systems at this time: Reviewed and Negative ROS As stated above in the HPI, otherwise all systems are reviewed and negative. Physical Exam Vital Signs: Temperature: 97.3, Source: Temporal, Heart Rate: 72, Respiratory Rate: 17, BP: 120/54, Pulse Oximetry: 94, Weight: 104.800 Oxygen Flow Rate: 0 Physical Exam General: Alert, no apparent distress. Respiratory: Lungs clear, no respiratory distress. Chest: No accessory muscle use. tender right ribs via palpation Cardiovascular: Regular rate and rhythm, no murmurs. Gastrointestinal: Soft, nontender, nondistended. Bowels sounds present. Extremities: Normal range of motion, no deformity. Neurologic: Oriented x4. Psychiatric: Normal mood and affect. Skin: Normal color, warm and dry. No edema, no ecchymosis. Progress Results/Orders Results/Orders Orders - OCTAVIO REGALADO BAND BOOKER Ct Chest (07/17/25 15:04) Completed Orders - OCTAVIO REGALADO BAND BOOK[address] Ct Chest (07/17/25 15:04) Hydrocodone/Apap 10/325 ([place] 10/325mg (07/17/25 15:20) Medications Received in ER Medications (Trade) Dose Ordered Sig/Anjum Route PRN Reason Start Time Stop Time Status Last Admin Dose Admin ([place] 10/325mg tab) 1 tab ONCE ONCE PO 07/17/25 15:20 07/17/25 15:21 DC 07/17/25 15:26 1 TAB Vital Signs 07/17/25 07/17/25 07/17/25 07/17/25 10:46 14:26 14:37 15:26 Temp 98.3 97.3 Pulse 91 72 Resp 16 15 17 18 B/P (MAP) 155/65 120/54 (76) Pulse Ox 97 94 O2 Flow Rate 0 0 07/17/25 15:47 Resp 18 Medical Decision Making Additional information obtaine: old records Findings He had not appreciate any signs of acute fracture in patient's chest x-ray however based on my physical exam I am suspicious that there may be fractures therefore I I ordered a CT scan. X-ray did show signs of potential viral pn eumonia or vascular congestion this does not clinically correlate CT findings came back positive for abnormalities in the right 4th left rib which is suspicious for rib fracture. This does clinically correlate. I am going to discharge her with pain medications advise her to monitor for pneumonia and to return she develop any worsening symptoms Differential Dx:Considerations: Include: Chest wall contusion, Flail chest, Myocardial contusion, Pneumothorax, Pulmonary contusion, Rib fracture, Renal contusion, Splenic fracture, Tension pneumothorax, Other Departure Disposition: HOME / SELF CARE / HOMELESS Impression: Primary Impression: Fracture of rib Condition: Stable Discharge Instructions: Rib Fracture Referrals: NO PRIMARY CARE PROVIDER (PCP) Prescriptions Hydrocodone Bit/Acetaminophen 5/325 MG ([place] 5/325 MG) 5 Mg/325 Mg Tablet 1 TAB PO Q6H PRN for pain, #14 TAB Prov: OCTAVIO REGALADO NP 07/17/25 Education Educated: Patient Educated regarding: diagnosis Signature Scribe Signature: y Attestation: Scribed for Octavio Regalado Wood Technologist by cOtavio Verdugo NP . 07/17/25 16:08 OCTAVIO REGALADO NP Jul 17, 2025 14:57
[2025-07-17] MEDS: HYDROcodone/acetaminophen 10/325mg tab PO ONE (15:26)
--- NOTE | 2025-07-17 15:48 | RADIOLOGY REPORT ---
EXAM: CT CT CHEST INDICATION: fall with rib pain right side TECHNIQUE: Noncontrast axial images of the chest have been obtained along with coronal and sagittal reformatted images. All CT scans at this facility use dose modulation, iterative reconstruction, and/or weight based dosing when appropriate to reduce radiation dose to as low as reasonably achievable. COMPARISON: DI CHEST,TWO VIEWS on DOS: 07/17/25 FINDINGS: LOWER NECK: Unremarkable LYMPH NODES/MEDIASTINUM: No abnormal lymph nodes by CT size criteria CARDIOVASCULAR: Normal cardiac size. No pericardial effusion. No aneurysmal dilatation of the great vessels. Coronary artery calcifications. UPPER ABDOMEN: Significant prominent splenorenal varices question gastroesophageal varices. MUSCULOSKELETAL: Slight contour irregularity of the right anterior 4th rib correlate with the area of point tenderness. Prior healed fracture of the left lateral 5th and 7th ribs. Multilevel degenerative change of the visualized spine. CHEST WALL: Unremarkable. LUNG PARENCHYMA/PLEURAL SPACE: No pleural effusion or pneumothorax. No consolidation, suspicious focal airspace opacity, or suspicious nodules. calcific granuloma of the right lung base. Areas of atelectasis and/or scarring. IMPRESSION: 1. Slight contour irregularity of the right anterior 4th rib correlate with the area of point tenderness. 2. No CT evidence of an acute intrathoracic process. 3. Sequelae of prior healed rib fractures. 4. Coronary artery calcifications. 5. Splenorenal varices.
[2025-07-17] MEDS ORDERED: HYDR-3965 PO (16:01)
[2025-07-17 16:29] VITALS: BP 119/71; PULSE 82; RESP 16; O2SAT 96
== END 2025-07-17 16:30 | disposition home or self-care (01) ==
LOC: ER 10:38
DX: S22.31XA Fracture of one rib, right side, initial encounter for closed fracture (principal); M19.90 Unspecified osteoarthritis, unspecified site; F32.A Depression, unspecified; F12.90 Cannabis use, unspecified, uncomplicated; F15.90 Other stimulant use, unspecified, uncomplicated; Z88.0 Allergy status to penicillin; Z88.1 Allergy status to other antibiotic agents; Z88.2 Allergy status to sulfonamides; Z88.5 Allergy status to narcotic agent; Z88.8 Allergy status to other drugs, medicaments and biological substances; Z90.49 Acquired absence of other specified parts of digestive tract; X58.XXXA Exposure to other specified factors, initial encounter; Y93.89 Activity, other specified; Y92.89 Other specified places as the place of occurrence of the external cause; Y99.8 Other external cause status
CPT/HCPCS: 71046; 71250; 99284